=== PATIENT | male | born 2000 | race Two or more races ===

== ENCOUNTER 2025-07-11 17:53 | Emergency (ER) | payer MEDICAID, OTHER ==
[~2025-07-11] VITALS: Ht 180.3 cm; Wt 68.0 kg
[2025-07-11] MEDS: KETOROLAC TROMETH 60MG/2ML VIAL IM ONE (18:50)
[2025-07-11] MEDS: HYDROcodone-ACET 5/325MG TAB PO ONE (18:50)
--- NOTE | 2025-07-11 18:56 | DVH ---
CLINICAL INDICATION: Trauma TECHNIQUE: XY R KNEE 3V XRAY Comparison: None FINDINGS/IMPRESSION: : There is no evidence of acute fracture or dislocation. Soft tissues are unremarkable.
[2025-07-11] MEDS ORDERED: IBUP-1455 PO (19:38)
[2025-07-11] MEDS ORDERED: ACET500T58 PO (19:38)
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
[2025-07-11 19:53] VITALS: BP 126/94; PULSE 91; RESP 17; TEMP 98.1; O2SAT 100
== END 2025-07-11 19:55 | disposition home or self-care (01) ==
LOC: ER 17:53
DX: S80.01XA Contusion of right knee, initial encounter (principal); X58.XXXA Exposure to other specified factors, initial encounter; Y93.89 Activity, other specified; Y92.89 Other specified places as the place of occurrence of the external cause; Y99.8 Other external cause status
CPT/HCPCS: 73562; 96372; 99283; J1885